=== PATIENT | male | born 1950 | race Caucasian/White ===

== ENCOUNTER 2025-03-20 15:41 | Inpatient (IN) | payer MEDICARE ==
[~2025-03-20] VITALS: Ht 165.1 cm; Wt 59.4 kg
[2025-03-20] MEDS ORDERED: FOLIC ACID 1 MG TABLET ONE (16:40)
[2025-03-20 16:47] LABS: PLATELET COUNT (AUTO) 204 K/uL (150-450); RED BLOOD CELL COUNT(AUTO) 4.21 MIL/uL (4.5-6.0); RED CELL DISTRIBUTION WIDTH 14.4 % (11.5-15.0); WHITE BLOOD COUNT (AUTO) 14.7 K/uL (4.3-11.0)
[2025-03-20] MEDS: Thiamine 100 MG in IV D5W 50 ML IV SCH (16:47)
[2025-03-20] MEDS: FOLIC ACID 1 MG TABLET PO ONE (16:48)
[2025-03-20 16:53] LABS: CALCIUM, SERUM 8.5 mg/dL (8.5-10.1); CREATININE 1.4 mg/dL (0.6-1.3); SODIUM SERUM 140 mmol/L (136-145); UREA NITROGEN, BLOOD 29 mg/dL (7-18)
[2025-03-20 16:59] LABS: ALCOHOL, BLOOD < 3 mg/dL (0-10); ASPARTATE AMINOTRANSFERASE 264 U/L (15-37); TOTAL PROTEIN, SERUM 7.4 g/dL (6.4-8.2)
[2025-03-20 18:12] LABS: APPEARANCE,URINE CLEAR (CLEAR); BLOOD, URINE Large Ery/uL (NEGATIVE); LEUKOCYTE ESTERASE ,URINE Negative (NEGATIVE); UGLUCOSE Negative (NEGATIVE)
[2025-03-20] MEDS: IV NS 0.9% 1,000 ML BAG IV PRN (18:12)
[2025-03-20 18:13] LABS: NITRITE, URINE NEGATIVE (NEGATIVE)
[2025-03-20 18:14] LABS: ADD URINE CULTURE NO; SQUAMOUS EPITHELIAL CELL,UR Rare /HPF (None Seen)
[2025-03-20 18:19] LABS: AMPHETAMINE, URINE NEGATIVE (NEGATIVE); BARBITURATE, URINE NEGATIVE (NEGATIVE); COCCAINE, URINE NEGATIVE (NEGATIVE); OPIATE, URINE NEGATIVE (NEGATIVE)
[2025-03-20 18:20] LABS: BENZODIAZEPINE, URINE POSITIVE (NEGATIVE); CANNABINOID, URINE POSITIVE (NEGATIVE)
[2025-03-20] MEDS ORDERED: FOLI0.8C PO (18:28)
[2025-03-20] MEDS ORDERED: DILT-32 PO (18:28)
[2025-03-20] MEDS ORDERED: LOPE2CAP PO (18:28)
[2025-03-20] MEDS ORDERED: APIX5TAB PO (18:28)
[2025-03-20] MEDS ORDERED: CLON0.1T PO (18:28)
[2025-03-20] MEDS ORDERED: RISP0.5T65 PO (18:28)
[2025-03-20] MEDS ORDERED: ATOR20TA PO (18:28)
[2025-03-20] MEDS ORDERED: ONDA8TAB13 PO (18:28)
[2025-03-20] MEDS ORDERED: TRAZ-182 PO (18:28)
[2025-03-20] MEDS ORDERED: THIA100T70 PO (18:28)
[2025-03-20] MEDS ORDERED: MULT-31 PO (18:28)
[2025-03-20] MEDS ORDERED: MIRT45TA83 PO (18:28)
[2025-03-20] MEDS ORDERED: CLON1TAB12 PO (18:28)
[2025-03-20] MEDS ORDERED: IBUP-1955 PO (18:28)
[2025-03-20] MEDS ORDERED: FAMO20TA8 PO (18:28)
[2025-03-20] MEDS ORDERED: GABA600T12 PO (18:28)
[2025-03-20] MEDS ORDERED: LEVOFLOXACIN 750 MG /D5W 150ML 150 ML IV ONE (19:46)
[2025-03-20] MEDS: LEVOFLOXACIN 750 MG /D5W 150ML 750 MG in PREMIX 1 EA IV SCH (19:53)
[2025-03-20] MEDS ORDERED: ONDANSETRON HCL/PF 4 MG/2 ML VIAL IVP PRN (20:30)
[2025-03-20] MEDS ORDERED: ALBUTEROL FS 2.5 MG/3 ML VIAL.NEB NEB PRN (20:30)
[2025-03-20] MEDS ORDERED: MAGNESIUM HYDROXIDE 30 ML UDC PO PRN (20:30)
[2025-03-20] MEDS ORDERED: IPRATROPIUM NEB FS 0.5 MG/2.5 ML AMPUL.NEB NEB PRN (20:30)
[2025-03-20] MEDS ORDERED: MAG HYDROX/AL HYDROX/SIMETH 30 ML UDC PO PRN (20:30)
[2025-03-20] MEDS ORDERED: ACETAMINOPHEN 325 MG TABLET PO PRN (20:30)
[2025-03-20 21:00] VITALS: BP 104/67; TEMP 98.1; O2SAT 99
[2025-03-20] MEDS: ZOLPIDEM TARTRATE 5 MG TABLET PO PRN (22:43)
[2025-03-21] VITALS: BP 149/87; TEMP 98.2; O2SAT 99
[2025-03-21 04:00] VITALS: BP 142/92; TEMP 98.1; O2SAT 98
[2025-03-21 07:49] LABS: PLATELET COUNT (AUTO) 200 K/uL (150-450); RED BLOOD CELL COUNT(AUTO) 4.15 MIL/uL (4.5-6.0); RED CELL DISTRIBUTION WIDTH 13.9 % (11.5-15.0); WHITE BLOOD COUNT (AUTO) 9.0 K/uL (4.3-11.0)
[2025-03-21 08:00] VITALS: BP 93/68; TEMP 97.8; O2SAT 97
[2025-03-21] MEDS ORDERED: LEVOFLOXACIN 500 MG /D5W 100ML 500 MG in PREMIX 1 EA IV ONE (08:00)
[2025-03-21] MEDS: PANTOPRAZOLE 40 MG TABLET.DR PO SCH (08:17)
[2025-03-21 08:31] LABS: CALCIUM, SERUM 8.6 mg/dL (8.5-10.1); CREATININE 1.0 mg/dL (0.6-1.3); PHOSPHORUS 2.7 mg/dL (2.5-4.9); SODIUM SERUM 141.0 mmol/L (136-145); UREA NITROGEN, BLOOD 23.0 mg/dL (7-18)
[2025-03-21 08:33] LABS: SERUM AMMONIA 14.0 umol/L (11-32)
[2025-03-21] MEDS ORDERED: THIAMINE HCL 100 MG TABLET PO SCH (09:00)
[2025-03-21] MEDS: THERAHONEY GEL 1.5 OZ TUBE TP SCH (10:53)
[2025-03-21 12:00] VITALS: BP 151/95; TEMP 97.5; O2SAT 96
[2025-03-21 12:58] VITALS: BP 151/94
[2025-03-21] MEDS: DILTIAZEM HCL CD 120 MG PO SCH (12:58)
[2025-03-21] MEDS ORDERED: DILTIAZEM HCL CD 240 MG PO SCH (13:00)
[2025-03-21] MEDS ORDERED: LEVOFLOXACIN 750 MG /D5W 150ML 750 MG in PREMIX 1 EA IV SCH (20:00)
[2025-03-22] MEDS ORDERED: LEVOFLOXACIN 250 MG /D5W 50 ML 250 MG in PREMIX 1 EA IV SCH (08:00)
== END 2025-03-21 14:20 | disposition home or self-care (01) | DRG 640 ==
LOC: ER 15:45 → TELE1 17:03
PROVIDERS: ADMIT Nurse Practitioner Family; ATTEND Nurse Practitioner Acute Care
DX: E86.0 Dehydration (principal); G92.9 Unspecified toxic encephalopathy; N17.9 Acute kidney failure, unspecified; E44.1 Mild protein-calorie malnutrition; F10.139 Alcohol abuse with withdrawal, unspecified; Y90.0 Blood alcohol level of less than 20 mg/100 ml; Z20.822 Contact with and (suspected) exposure to COVID-19; D64.9 Anemia, unspecified; E88.09 Other disorders of plasma-protein metabolism, not elsewhere classified; E78.5 Hyperlipidemia, unspecified; I12.9 Hypertensive chronic kidney disease with stage 1 through stage 4 chronic kidney disease, or unspecified chronic kidney disease; N18.9 Chronic kidney disease, unspecified; K21.9 Gastro-esophageal reflux disease without esophagitis; F43.10 Post-traumatic stress disorder, unspecified; F11.90 Opioid use, unspecified, uncomplicated; L89.96 Pressure-induced deep tissue damage of unspecified site; S90.821A Blister (nonthermal), right foot, initial encounter; X58.XXXA Exposure to other specified factors, initial encounter; Y92.9 Unspecified place or not applicable; Z79.01 Long term (current) use of anticoagulants; Y95 Nosocomial condition; Z79.899 Other long term (current) drug therapy; F19.90 Other psychoactive substance use, unspecified, uncomplicated; E86.9 Volume depletion, unspecified; M89.8X9 Other specified disorders of bone, unspecified site
CPT/HCPCS: 36415; 70450-TC; 71045-TC; 80048-TC; 80076-TC; 81001; 82140-TC; 83735-TC; 84100-TC; 85025-TC; 87040-TC; 87081-TC; A4216; G0378; G0480; J1956; J3411; J7030; J7060